=== PATIENT | female | born 1965 | race Caucasian/White ===

== ENCOUNTER 2021-07-03 11:46 | Inpatient (IN) | payer MEDICARE, MEDICAID ==
[~2021-07-03] VITALS: Ht 160 cm; Wt 85.7 kg
[2021-07-03 16:56] LABS: HEMOGLOBIN 12.8 gm/dl (12.3-15.3); RED BLOOD COUNT 4.28 M/UL (4.00-5.10); WHITE BLOOD COUNT 5.7 K/UL (4.5-11.0)
[2021-07-03 17:14] LABS: BUN/CREATININE RATIO 18 (0-10)
[2021-07-04] MEDS ORDERED: NEXLIZET 180-11 EACH PO (11:27)
[2021-07-04] MEDS ORDERED: GABAPENTIN100 MG PO (11:28)
[2021-07-04] MEDS ORDERED: CYANOCOBAL1000 MCG/1 INJ (11:28)
[2021-07-04] MEDS ORDERED: MELOXICAM7.5 MG PO (11:29)
[2021-07-05 04:44] LABS: HEMOGLOBIN 11.8 gm/dl (12.3-15.3); RED BLOOD COUNT 4.06 M/UL (4.00-5.10)
[2021-07-05 04:46] LABS: WHITE BLOOD COUNT 3.1 K/UL (4.5-11.0)
[2021-07-05 05:20] LABS: BUN/CREATININE RATIO 22 (0-10)
--- NOTE | 2021-07-05 13:31 | NUR ---
07/05/21 1310 REPORT CALLED TO [facility] TO BE TRANSFERRED TO [id number]
--- NOTE | 2021-07-06 14:20 | NUR ---
patient o2 sat is 98% on 2 liters of oxygen. patient on room air o2 sat is 90-93%
[2021-07-06] MEDS ORDERED: PROVENTIL HFA6.7 GM INH (14:45)
[2021-07-06] MEDS ORDERED: DECADRON6 MG PO (14:45)
== END 2021-07-06 15:35 | disposition home or self-care (01) | DRG 177 ==
LOC: ER1 11:46 → CDU 18:10 → M/S 18:10 → 3 EAST 07-04 19:51 → M/S 07-05 14:08
PROVIDERS: Physician Assistant; ADMIT Internal Medicine Infectious Disease
PROC: XW033H6 Introduction of Other New Technology Monoclonal Antibody into Peripheral Vein, Percutaneous Approach, New Technology Group 6 (ICD-10-PCS; principal; 2021-07-03)
PROC: 3E0333Z Introduction of Anti-inflammatory into Peripheral Vein, Percutaneous Approach (ICD-10-PCS; 2021-07-03)
PROC: 8E0ZXY6 Isolation (ICD-10-PCS; 2021-07-04)
DX: U07.1 COVID-19 (principal); J96.01 Acute respiratory failure with hypoxia; J12.82 Pneumonia due to coronavirus disease 2019; E78.00 Pure hypercholesterolemia, unspecified; Z99.81 Dependence on supplemental oxygen; Z23 Encounter for immunization; Z88.2 Allergy status to sulfonamides
CPT/HCPCS: 36415; 36600; 71045; 80053; 82728; 82803; 85025; 85379; 86140; 94640; 94664; 94760; 99285; G0378; J1100; J1650; M0247

== ENCOUNTER → 2022-01-14 | Outpatient (CLI) | payer MEDICARE, MEDICAID ==
[~2022-01-14] MED LIST: CYANOCOBAL1000 MCG/1 INJ; DECADRON6 MG PO; GABAPENTIN100 MG PO; MELOXICAM7.5 MG PO; NEXLIZET 180-11 EACH PO; PROVENTIL HFA6.7 GM INH
== END ==
LOC: LAB 08:06
DX: S92.352D Displaced fracture of fifth metatarsal bone, left foot, subsequent encounter for fracture with routine healing (principal); Z20.822 Contact with and (suspected) exposure to COVID-19; X58.XXXD Exposure to other specified factors, subsequent encounter
CPT/HCPCS: U0002